=== PATIENT | male | born 1960 | race African-American/Black ===

== ENCOUNTER 2022-06-14 22:03 | Emergency (ER) | payer MEDICARE, MEDICAID, SELFPAY ==
--- NOTE | 2022-06-14 | ECG_ITS ---
Test Reason : WEAKNESS Blood Pressure : / mmHG Vent. Rate : 077 BPM Atrial Rate : 077 BPM P-R Int : 184 ms QRS Dur : 104 ms QT Int : 398 ms P-R-T Axes : 057 003 064 degrees QTc Int : 450 ms Normal sinus rhythm Normal ECG No previous ECGs available Referred By: Generic ED Physician Electronically Signed By:JENNIFER BARR
[2022-06-14 22:09] VITALS: BP 183/83; PULSE 82; RESP 18; TEMP 36.8; O2SAT 100; BMI 26.6
[2022-06-14 22:58] LABS: Glucose, Whole Blood 158 mg/dL (60-115)
--- NOTE | 2022-06-15 02:35 | PC.NURSE ---
Patient's cg reports patient is tired and would like eat and rest. Patient's caregiver taking patient home. Caregiver reports they will return by EMS if symptoms get worse or patient develop new symptoms.
== END 2022-06-15 04:26 | disposition left against medical advice (07) ==
PROVIDERS: Emergency Provider Emergency Medicine
DX: R07.89 Other chest pain (principal); R53.1 Weakness; Z95.0 Presence of cardiac pacemaker
CPT/HCPCS: 82947; 93005; 99283